=== PATIENT | male | born 1970 | race African-American/Black ===

== ENCOUNTER → 2018-02-20 | Outpatient (CLI) | payer OTHER ==
--- NOTE | 2018-02-20 16:18 | KCIC ---
PA chest, 02/20/2018: HISTORY: Positive TB skin test The heart size is normal. There is minimal scarring over the pulmonary apices. No acute infiltrate is seen. There is no evidence of pleural fluid. IMPRESSION: No acute cardiopulmonary abnormality is detected. Electronically signed by: Jeffrey Feliciano MD (02/20/2018 4:15 PM) [facility]
== END | disposition home or self-care (01) ==
LOC: KCIC 10:26
PROVIDERS: ATTEND Family Medicine
DX: R76.11 Nonspecific reaction to tuberculin skin test without active tuberculosis (principal)
CPT/HCPCS: 71045